=== PATIENT | female | born 1975 | race Caucasian/White ===

== ENCOUNTER 2016-10-03 14:29 | Emergency (ER) | payer MEDICAID, OTHER ==
[~2016-10-03] VITALS: Ht 172.7 cm; Wt 68.0 kg
[~2016-10-03 14:29] MED LIST: PYRI200T4 PO; Z.0.NO CURRENT MEDS
[2016-10-03 14:33] VITALS: BP 164/88; PULSE 86; RESP 15; TEMP 97.8; O2SAT 100
--- NOTE | 2016-10-04 17:24 | EKG ---
Date Performed: 10/03/2016 Time Performed: 15:19:13 PTAGE: 41 years EKG: SINUS ARRHYTHMIA WITHIN NORMAL LIMITS BORDERLINE ECG NO PREVIOUS TRACING DOCTOR: Regulo Sorto Interpretating Date/Time 10/04/2016 17:22:37
== END 2016-10-03 16:30 | disposition left against medical advice (07) ==
LOC: NED 14:29
DX: R68.89 Other general symptoms and signs (principal); R94.31 Abnormal electrocardiogram [ECG] [EKG]
CPT/HCPCS: 93005; 99281